=== PATIENT | female | born 1970 | race Caucasian/White ===

== ENCOUNTER 2023-11-23 18:31 | Emergency (ER) | payer OTHER, SELFPAY ==
[2023-11-23 18:32] VITALS: BP 126/72; PULSE 68; RESP 16; TEMP 37; O2SAT 98
[2023-11-23] MEDS: AMOXICILLIN/CLAVULANATE K 875-125 MG TAB 1 TABLET PO (18:48)
--- NOTE | 2023-11-23 18:49 | ED.DENTAL ---
HPI - Dental/Oral General Chief complaint: Dental/Oral Stated complaint: broken tooth Time Seen by Provider: 11/23/23 18:41 History of Present Illness HPI Narrative: 53-year-old female presenting to the emergency department for evaluation acute dental fracture. Patient states she was eating chicken and broke her tooth. Patient did take ibuprofen for pain control and this did help. Patient states she will have follow-up on Saturday with a dentist. Related Data Allergies Allergy/AdvReac Type Severity Reaction Status Date / Time codeine Allergy Mild Hives Unverified 11/23/23 18:49 Review of Systems Review of Systems: All systems reviewed & are unremarkable except as noted in HPI and below Exam Narrative: APPEARANCE: Well appearing, no pain, no distress, well-nourished. HEAD: normocephalic, atraumatic. EYES: PERRLA/EOMI, conjunctivae clear. Mouth: Left lower dental fracture RESPIRATORY: Airway patent, respirations nonlabored. Clear to auscultation bilaterally, no rales, rhonchi, wheezing. CARDIOVASCULAR: Regular rate and rhythm without murmurs rubs or gallops. ABDOMINAL: Soft, nontender, nondistended, normal bowel sounds MUSCULOSKELETAL: Moves all extremities. Strength/ROM intact, No edema, No calf tenderness. NEURO: Alert. Cranial nerves II through XII intact. Grossly intact Course Vital Signs Vital signs: Vital Signs Temperature 98.6 F 11/23/23 18:32 Pulse Rate 68 11/23/23 18:32 Respiratory Rate 16 11/23/23 18:32 Blood Pressure 126/72 11/23/23 18:32 Pulse Oximetry 98 11/23/23 18:32 Temperature 98.6 F 11/23/23 18:32 Pulse Rate 68 11/23/23 18:32 Respiratory Rate 16 11/23/23 18:32 Blood Pressure 126/72 11/23/23 18:32 Pulse Oximetry 98 11/23/23 18:32 MDM - Dental/Oral MDM Narrative Medical decision making narrative: 51-year-old female presents emergency department for evaluation a dental fracture. No evidence of trismus or abscess. Patient declined any additional medications for pain control. Patient does have ibuprofen at her facility. Patient was started on Augmentin in the emergency department. Patient states she will have follow-up with her dentist potentially on Saturday. Differential Diagnosis Differential diagnosis: Likely gingival abscess, dental caries, toothache, fracture of tooth and aphthous ulcer Discharge Plan Discharge Clinical Impression: Fracture of tooth Patient Disposition: Home, Self-Care Condition: Stable Instructions: Antibiotic Form, Acute Dental Trauma (ED) Additional Instructions: Tylenol and ibuprofen for pain control. Antibiotic as directed until completed. Have close follow-up with your dentist. Prescriptions: New amoxicillin-pot clavulanate 875-125 mg tablet 1 tablet PO Q12H Qty: 14 0RF Follow-up/Referrals: Lo,Anthony Murphy MD [Primary Care Provider] -
== END 2023-11-23 19:39 | disposition home or self-care (01) ==
LOC: ANHED 19:12
PROVIDERS: Emergency Provider Emergency Medicine; PCP Internal Medicine
DX: K03.81 Cracked tooth (principal)
CPT/HCPCS: 99283; A9270